=== PATIENT | female | born 1985 | race Caucasian/White ===

== ENCOUNTER 2016-04-03 21:55 | Emergency (ER) | payer OTHER ==
[2016-04-03 22:28] VITALS: BP 182/121; PULSE 114; RESP 16; TEMP 96.8
[2016-04-03] MEDS ORDERED: SODIUM CHLORIDE 0.9% 1,000 ML IV ONE (22:46)
[2016-04-03] MEDS ORDERED: cloNIDine HCL 0.2 MG TAB PO STA (22:47)
--- NOTE | 2016-04-04 03:50 | ED ---
General Adult HPI - General Chief complaint: Recheck/Abnormal Lab/Rx Stated complaint: Altered Mental State - LOC Time Seen by Provider: 04/03/16 22:11 Source: patient, EMS Mode of arrival: EMS Limitations: no limitations - History of Present Illness Initial comments: Patient is a 30-year-old female presenting to the EC via police escort with a chief complaint of altered mental status. They report that she was found at [employer] parking lot and was sleeping in her emergency medical technician/driver's seat. They state that they had to arouse her and banged on the window in order to wake her up. They state that initially when they found her she was incoherent and altered however as time progressed she started to become more coherent and was then brought to the EC. They report that she took one of her pain pills as well as a few Xanax for anxiety earlier today. She does have 2 pill bottle this with her about specific labeling on indicating that they are hers. Patient reports that she was in the parking lot because she was feeling slightly ill after dropping her daughter off at the movies. She reports that when she fell ill she pulled her car off into the parking lot and decided to rest. He states that she took her pain pills as well as a few Xanax and also took some for nerve pain pills including Neurontin. She denies any alcohol or other drug use. She states that she has a past medical history significant for kidney failure and has recently discontinued he doing dialysis. She reports she had kidney failure due to extreme blood loss during a consultation with . Patient reports that she feels fine at this time and wants to go home. Patient upon arrival to the EC does have an elevated blood pressure of 180/120. She reports that this is normal for her and she is due for her dose of labetalol. Patient denies any other specific symptoms including headache or chest pain. She denies any abdominal pain, nausea or vomiting. Severity scale (1-10): 0 - Related Data Home Medications Medication Instructions Recorded Confirmed No Known Home Medications [No 12/23/14 12/23/14 Known Home Medications] Allergies Allergy/AdvReac Type Severity Reaction Status Date / Time No Known Allergies Allergy Verified 12/23/14 06:52 Review of Systems ROS Statement: Those systems with pertinent positive or pertinent negative responses have been documented in the HPI. ROS Other: All systems not noted in ROS Statement are negative. Past Medical History Past Medical History: Hypertension, Renal Disease Additional Past Medical History / Comment(s): Patient reports one spontaneous vaginal delivery 7 years ago. History of Any Multi-Drug Resistant Organisms: None Reported Past Surgical History: No Surgical Hx Reported Additional Past Surgical History / Comment(s): Surgery of the eyebrow, dialysis Past Anesthesia/Blood Transfusion Reactions: No Reported Reaction Past Psychological History: No Psychological Hx Reported Smoking Status: Current every day smoker Past Alcohol Use History: None Reported Past Drug Use History: None Reported - Past Family History Mother Family Medical History: No Reported History General Exam - General Exam Comments Initial Comments: Patient is a well-appearing coherent 30-year-old female. She does not appear to be intoxicated or in any acute distress. Limitations: no limitations General appearance: alert, in no apparent distress Head exam: Present: atraumatic, normocephalic, normal inspection Eye exam: Present: normal appearance, PERRL, EOMI. Absent: scleral icterus, conjunctival injection, periorbital swelling ENT exam: Present: normal exam, normal oropharynx, mucous membranes moist, TM's normal bilaterally Neck exam: Present: normal inspection. Absent: tenderness, meningismus, lymphadenopathy Respiratory exam: Present: normal lung sounds bilaterally. Absent: respiratory distress, wheezes, rales, rhonchi, stridor Cardiovascular Exam: Present: regular rate, normal rhythm, normal heart sounds. Absent: systolic murmur, diastolic murmur, rubs, gallop, clicks GI/Abdominal exam: Present: soft, normal bowel sounds. Absent: distended, tenderness, guarding, rebound, rigid Extremities exam: Present: normal inspection, full ROM, normal capillary refill. Absent: tenderness, pedal edema, joint swelling, calf tenderness Back exam: Present: normal inspection Neurological exam: Present: alert, oriented X3, CN II-XII intact Expanded Patient oriented to: Present: person, place, time Speech: Present: fluid speech Cranial nerves: EOM's Intact: Normal Cerebellar function: Finger to Nose: Normal Upper motor neuron: Terry Neglect: Normal Sensory exam: Upper Extremity Light Touch: Normal, Lower Extremity Light Touch: Normal Motor strength exam: RUE: 5, LUE: 5, RLE: 5, LLE: 5 Eye Response: (4) open spontaneously Motor Response: (6) obeys commands Verbal Response: (5) oriented [place] Total: 15 Psychiatric exam: Present: normal affect, normal mood Skin exam: Present: warm, dry, intact, normal color. Absent: rash Course Vital Signs 04/03/16 22:11 Temperature 96.8 F L Pulse Rate 114 H Respiratory 16 Rate Blood Pressure 182/121 O2 Sat by Pulse 98 Oximetry Medical Decision Making - Medical Decision Making Patient is a well-appearing 30-year-old female. She does not appear to be in any acute distress. Given patient's elevated blood pressure would like to do further testing including lab work as well as chest x-ray and other studies. Patient is coherent and has no signs of head trauma or any other obvious organic causes for her loss consciousness earlier this evening. Patient now report was ran and she has not received a prescription for pain pill or Xanax within the past few years. Maps report was positive for pain pills ran in 2014. One wanting to start the IV and lab work patient became anxious. She states that she does not want to have any further treatment done and will wants to go home. Patient will sign out AMA regards to her blood pressure and diagnosis of altered mental status. Patient is coherent and understands the risks of leaving. Patient was given 1 mg of Catapres due to her high blood pressure before leaving. I advised patient that she needs to follow-up with her primary care or return to the if any alarming signs or symptoms occur. Patient understands treatment plan is that she will comply. Patient is likely the patient became intoxicated after taking her medications and was the reason why she was found in the [employer] parking lot sleeping. Again patient is coherent and no obvious signs of altered mental status at this time Disposition Clinical Impression: Hypertension, Altered awareness, transient Disposition: Left Against Medical Advice Condition: Serious Additional Instructions: Patient instructed to follow-up with primary care provider regards to hypertension. Referrals: Patti Murrell MD [Primary Care Provider] - 1-2 days Time of Disposition: 22:45
== END 2016-04-03 23:10 | disposition left against medical advice (07) ==
LOC: EC 21:55
DX: R40.4 Transient alteration of awareness (principal); I10 Essential (primary) hypertension; F17.200 Nicotine dependence, unspecified, uncomplicated; Z91.19 Patient's noncompliance with other medical treatment and regimen
CPT/HCPCS: 93005; 99285

== ENCOUNTER 2017-04-20 17:04 | Emergency (ER) | payer OTHER ==
[2017-04-20] MEDS ORDERED: SODIUM CHLORIDE 0.9% 1,000 ML IV ONE (17:17)
--- NOTE | 2017-04-20 17:30 | ED ---
Overdose HPI - General Stated Complaint: Overdose Time Seen by Provider: 04/20/17 17:07 Source: patient, EMS, RN notes reviewed, old records reviewed Mode of arrival: EMS Limitations: altered mental status - History of Present Illness Initial Comments: This patient is a 31-year-old female presents emergency Department with chief complaint of overdose. Patient reports that she took 800 mg of Phenergan. Patient reports that she was given this medication from a friend. Patient states that she was at home and her mother called the EMS. Patient reports that she feels very tired and fatigued. She denies any episodes of falling or her head. She is a poor historian however, she states that everything is 800 mg. Patient does not relate how she got this medication besides her friend giving it to her. Patient states that she is not suicidal. - Related Data Previous Rx's Medication Instructions Recorded amLODIPine [Norvasc] 5 mg PO DAILY #15 tab 04/21/17 Allergies Allergy/AdvReac Type Severity Reaction Status Date / Time No Known Allergies Allergy Verified 04/20/17 17:21 Review of Systems ROS Statement: Those systems with pertinent positive or pertinent negative responses have been documented in the HPI. ROS Other: All systems not noted in ROS Statement are negative. Past Medical History Past Medical History: Hypertension, Renal Disease Additional Past Medical History / Comment(s): Patient reports one spontaneous vaginal delivery 7 years ago. History of Any Multi-Drug Resistant Organisms: None Reported Past Surgical History: No Surgical Hx Reported Additional Past Surgical History / Comment(s): Surgery of the eyebrow, dialysis Past Anesthesia/Blood Transfusion Reactions: No Reported Reaction Past Psychological History: No Psychological Hx Reported Smoking Status: Current every day smoker Past Alcohol Use History: None Reported Past Drug Use History: None Reported - Past Family History Mother Family Medical History: No Reported History General Exam - General Exam Comments Initial Comments: This is a 31-year-old female. Patient is alert and oriented 2. Limitations: altered mental status General appearance: alert, in no apparent distress Head exam: Present: atraumatic, normocephalic, normal inspection Eye exam: Present: PERRL, EOMI, other (Patient has dilated pupils.). Absent: normal appearance, scleral icterus, conjunctival injection, periorbital swelling ENT exam: Present: normal exam, mucous membranes moist Neck exam: Present: normal inspection. Absent: tenderness, meningismus, lymphadenopathy Respiratory exam: Present: normal lung sounds bilaterally. Absent: respiratory distress, wheezes, rales, rhonchi, stridor Cardiovascular Exam: Present: regular rate, normal rhythm, normal heart sounds. Absent: systolic murmur, diastolic murmur, rubs, gallop, clicks GI/Abdominal exam: Present: soft, normal bowel sounds, other (Scars noted from previous surgeries.). Absent: distended, tenderness, guarding, rebound, rigid Extremities exam: Present: normal inspection, full ROM, normal capillary refill. Absent: tenderness, pedal edema, joint swelling, calf tenderness Back exam: Present: normal inspection Neurological exam: Present: abnormal gait. Absent: alert (Patient is somnolent. ) Expanded Patient oriented to: Present: person, place Speech: Present: expressive aphasia (When asked where patient family is, she continues to state 800 mg.) Cranial nerves: EOM's Intact: Normal (Patient does have a extraocular ocular eye movements, she does have delayed eye movements.) Cerebellar function: Finger to Nose: Abnormal Left (Patient unable to perform finger to nose testing.) Sensory exam: Upper Extremity Light Touch: Normal, Lower Extremity Pin Prick: Normal Motor strength exam: RUE: 5, LUE: 5, RLE: 5, LLE: 5 Eye Response: (4) open spontaneously Motor Response: (6) obeys commands Verbal Response: (4) confused conversation [place] Total: 14 Psychiatric exam: Present: normal affect, normal mood Skin exam: Present: warm, dry, intact, normal color. Absent: rash Course Vital Signs 04/20/17 04/20/17 04/20/17 17:17 18:40 19:00 Temperature 98.3 F Pulse Rate 82 98 99 Respiratory 18 16 18 Rate Blood Pressure 171/101 178/81 153/88 O2 Sat by Pulse 99 99 99 Oximetry 04/20/17 04/20/17 04/20/17 20:00 21:00 21:30 Temperature Pulse Rate 102 H 85 88 Respiratory 18 20 16 Rate Blood Pressure 165/88 203/112 162/102 O2 Sat by Pulse 99 100 99 Oximetry 04/20/17 04/20/17 04/20/17 22:00 22:30 22:56 Temperature Pulse Rate 84 81 94 Respiratory 20 18 20 Rate Blood Pressure 130/88 123/78 111/56 O2 Sat by Pulse 100 100 99 Oximetry 04/21/17 04/21/17 00:45 01:18 Temperature 79.8 F L Pulse Rate 94 92 Respiratory 18 16 Rate Blood Pressure 200/123 158/79 O2 Sat by Pulse 97 100 Oximetry - Reevaluation(s) Reevaluation #1: 04/20/17 18:49 Patient was repacked this time. She is alert and oriented. She is responsive to questions. She still does appear to be somewhat somnolent and drifting off to sleep when not talk to. Reevaluation #2: 04/20/17 20:19 Patient is alert and oriented. She is becoming increasingly anxious and states that she wants to leave at this time. Discussed waiting for further blood work. Medical Decision Making - Medical Decision Making This patient is a 31-year-old female presents emergency Department with chief complaint of overdose. Patient reports that she took 800 mg of Phenergan. Patient reports that she was given this medication from a friend. Patient states that she was at home and her mother called the EMS. Patient reports that she feels very tired and fatigued. She denies any episodes of falling or her head. She is a poor historian however, she states that everything is 800 mg. Patient does not relate how she got this medication besides her friend giving it to her. Patient states that she is not suicidal. Patient arrived with a bag of "Phenibut" brought with from patient's house by EMS. Time patient reports she took he 800 mg of the substance. The substance is similar to gabapentin. Internet search was completed and is a medication bottle online from [employer]. This is a [employer] AGon[employer]. When patient intially arrived stated that she was here on the of this month. I discussed with the patient that today is actually the . Patient became somnolent and was snoring throughout initial ER stay. Patient was arousable the entire time to sternal rub and wouldn't answer any questions more appropriately as time continued on. Patient did start to become more arousable, and anxious and stating that she wanted to leave. She did remain calm afterwards after discussion we needed more blood work. Patient labwork was reviewed with a normal. She continued to have elevated blood pressure. Patient's stay He is given IV labetalol and blood pressure came down appropriately. Patient reports that she does have history of poor kidney function and high blood pressure. She has not been to see her primary care doctor regularly. 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 Patient is alert and oriented. She is able to ambulate without difficulty. Patient will take a taxi ride home. I'll start the patient on Norvasc 5 blood pressure. Discussion is to stop taking the Phenibut medication. UDS is negative for other controlled or illegal substances. Patient understands treatment plan will comply. Return parameters were discussed. - Lab Data Result diagrams: 04/20/17 19:31 04/20/17 18:00 Lab Results 04/20/17 04/20/17 04/20/17 Range/Units 18:00 19:31 19:31 WBC 11.6 H (3.8-10.6) k/uL RBC 4.51 (3.80-5.40) m/uL Hgb 13.9 (11.4-16.0) gm/dL Hct 42.7 (34.0-46.0) % MCV 94.7 (80.0-100.0) fL MCH 30.8 (25.0-35.0) pg MCHC 32.5 (31.0-37.0) g/dL RDW 16.7 H (11.5-15.5) % Plt Count 305 (150-450) k/uL Neutrophils % 79 % Lymphocytes % 15 % Monocytes % 3 % Eosinophils % 1 % Basophils % 1 % Neutrophils # 9.2 H (1.3-7.7) k/uL Lymphocytes # 1.8 (1.0-4.8) k/uL Monocytes # 0.4 (0-1.0) k/uL Eosinophils # 0.1 (0-0.7) k/uL Basophils # 0.1 (0-0.2) k/uL Anisocytosis Slight PT 9.6 (9.0-12.0) sec INR 1.0 (<1.2) APTT 22.4 (22.0-30.0) sec Sodium 144 (137-145) mmol/L Potassium 4.1 (3.5-5.1) mmol/L Chloride 110 H (98-107) mmol/L Carbon Dioxide 21 L (22-30) mmol/L Anion Gap 13 mmol/L BUN 22 H (7-17) mg/dL Creatinine 1.45 H (0.52-1.04) mg/dL Est GFR (MDRD) Af Amer 51 (>60 ml/min/1.73 sqM) Est GFR (MDRD) Non-Af 42 (>60 ml/min/1.73 sqM) Glucose 95 (74-99) mg/dL Calcium 10.3 H (8.4-10.2) mg/dL Total Bilirubin 0.5 (0.2-1.3) mg/dL AST 23 (14-36) U/L ALT 26 (9-52) U/L Alkaline Phosphatase 122 (38-126) U/L Total Creatine Kinase (30-135) U/L CK-MB (CK-2) (0.0-2.4) ng/mL CK-MB (CK-2) Rel Index Troponin I (0.000-0.034) ng/mL Total Protein 7.8 (6.3-8.2) g/dL Albumin 4.6 (3.5-5.0) g/dL Urine Color Urine Appearance (Clear) Urine pH (5.0-8.0) Ur Specific [place] (1.001-1.035) Urine Protein (Negative) Urine Glucose (UA) (Negative) Urine Ketones (Negative) Urine Blood (Negative) Urine Nitrite (Negative) Urine Bilirubin (Negative) Urine Urobilinogen (<2.0) mg/dL Ur Leukocyte Esterase (Negative) Urine RBC (0-5) /hpf Urine WBC (0-5) /hpf Urine Bacteria (None) /hpf Hyaline Casts (0-2) /lpf Urine Mucus (None) /hpf Urine Opiates Screen (NotDetected) Ur Oxycodone Screen (NotDetected) Urine Methadone Screen (NotDetected) Ur Propoxyphene Screen (NotDetected) Acetaminophen <10.0 ug/mL Ur Barbiturates Screen (NotDetected) U Tricyclic Antidepress (NotDetected) Ur Phencyclidine Scrn (NotDetected) Ur Amphetamines Screen (NotDetected) U Methamphetamines Scrn (NotDetected) U Benzodiazepines Scrn (NotDetected) Urine Cocaine Screen (NotDetected) U Marijuana (THC) Screen (NotDetected) 04/20/17 04/20/17 Range/Units 19:31 19:53 WBC (3.8-10.6) k/uL RBC (3.80-5.40) m/uL Hgb (11.4-16.0) gm/dL Hct (34.0-46.0) % MCV (80.0-100.0) fL MCH (25.0-35.0) pg MCHC (31.0-37.0) g/dL RDW (11.5-15.5) % Plt Count (150-450) k/uL Neutrophils % % Lymphocytes % % Monocytes % % Eosinophils % % Basophils % % Neutrophils # (1.3-7.7) k/uL Lymphocytes # (1.0-4.8) k/uL Monocytes # (0-1.0) k/uL Eosinophils # (0-0.7) k/uL Basophils # (0-0.2) k/uL Anisocytosis PT (9.0-12.0) sec INR (<1.2) APTT (22.0-30.0) sec Sodium (137-145) mmol/L Potassium (3.5-5.1) mmol/L Chloride (98-107) mmol/L Carbon Dioxide (22-30) mmol/L Anion Gap mmol/L BUN (7-17) mg/dL Creatinine (0.52-1.04) mg/dL Est GFR (MDRD) Af Amer (>60 ml/min/1.73 sqM) Est GFR (MDRD) Non-Af (>60 ml/min/1.73 sqM) Glucose (74-99) mg/dL Calcium (8.4-10.2) mg/dL Total Bilirubin (0.2-1.3) mg/dL AST (14-36) U/L ALT (9-52) U/L Alkaline Phosphatase (38-126) U/L Total Creatine Kinase 279 H (30-135) U/L CK-MB (CK-2) 6.3 H* (0.0-2.4) ng/mL CK-MB (CK-2) Rel Index 2.3 Troponin I 0.015 (0.000-0.034) ng/mL Total Protein (6.3-8.2) g/dL Albumin (3.5-5.0) g/dL Urine Color Light Yellow Urine Appearance Clear (Clear) Urine pH 5.5 (5.0-8.0) Ur Specific [place] 1.006 (1.001-1.035) Urine Protein 1+ H (Negative) Urine Glucose (UA) Negative (Negative) Urine Ketones Negative (Negative) Urine Blood Small H (Negative) Urine Nitrite Negative (Negative) Urine Bilirubin Negative (Negative) Urine Urobilinogen <2.0 (<2.0) mg/dL Ur Leukocyte Esterase Negative (Negative) Urine RBC 1 (0-5) /hpf Urine WBC 1 (0-5) /hpf Urine Bacteria Rare H (None) /hpf Hyaline Casts 1 (0-2) /lpf Urine Mucus Rare H (None) /hpf Urine Opiates Screen Not Detected (NotDetected) Ur Oxycodone Screen Not Detected (NotDetected) Urine Methadone Screen Not Detected (NotDetected) Ur Propoxyphene Screen Not Detected (NotDetected) Acetaminophen ug/mL Ur Barbiturates Screen Not Detected (NotDetected) U Tricyclic Antidepress Not Detected (NotDetected) Ur Phencyclidine Scrn Not Detected (NotDetected) Ur Amphetamines Screen Not Detected (NotDetected) U Methamphetamines Scrn Not Detected (NotDetected) U Benzodiazepines Scrn Not Detected (NotDetected) Urine Cocaine Screen Not Detected (NotDetected) U Marijuana (THC) Screen Not Detected (NotDetected) 04/20/17 17:32 EKG shows normal sinus rhythm. Ventricular rate of 86 bpm. FL interval 134 ms. QRS duration 78 ms. QT QTC 05/28/1981/457 ms. No evidence of ST elevation or T-wave inversions. No with atrial or ventricular arrhythmias. - Radiology Data Radiology results: report reviewed Chest x-ray was reviewed and negative for any acute process. Disposition Clinical Impression: Overdose, Hypertension Disposition: HOME SELF-CARE Condition: Good Instructions: Adult Overdose (ED) Additional Instructions: Follow-up with PCP. Avoid using drugs and other substances. Return to the emergency department if any alarming signs or symptoms occur. Prescriptions: amLODIPine [Norvasc] 5 mg PO DAILY #15 tab Referrals: Patti Murrell MD [Primary Care Provider] - 1-2 days Time of Disposition: 23:42
[2017-04-20 19:18] LABS: ALT 26 U/L (9-52); AST 23 U/L (14-36); Acetaminophen <10.0 ug/mL; Albumin 4.6 g/dL (3.5-5.0); Alkaline Phosphatase 122 U/L (38-126); Anion Gap 13 mmol/L; Blood Urea Nitrogen 22 mg/dL (7-17); Calcium 10.3 mg/dL (8.4-10.2); Carbon Dioxide 21 mmol/L (22-30); Chloride 110 mmol/L (98-107); Glucose 95 mg/dL (74-99); Potassium 4.1 mmol/L (3.5-5.1); Sodium 144 mmol/L (137-145); Total Bilirubin 0.5 mg/dL (0.2-1.3); Total Protein 7.8 g/dL (6.3-8.2)
[2017-04-20 19:48] LABS: Anisocytosis Slight; Basophils # (A) 0.1 k/uL (0-0.2); Basophils % (A) 1 %; Eosinophils # (A) 0.1 k/uL (0-0.7); Eosinophils % (A) 1 %; HCT 42.7 % (34.0-46.0); HGB 13.9 gm/dL (11.4-16.0); Lymphocytes # (A) 1.8 k/uL (1.0-4.8); Lymphocytes % (A) 15 %; MCH 30.8 pg (25.0-35.0); MCHC 32.5 g/dL (31.0-37.0); MCV 94.7 fL (80.0-100.0); Mean Platelet Volume 7.8; Monocytes # (A) 0.4 k/uL (0-1.0); Monocytes % (A) 3 %; Neutrophils # (A) 9.2 k/uL (1.3-7.7); Neutrophils % (A) 79 %; Platelet Count 305 k/uL (150-450); RBC 4.51 m/uL (3.80-5.40); RDW 16.7 % (11.5-15.5); WBC 11.6 k/uL (3.8-10.6)
[2017-04-20 19:57] LABS: Partial Thromboplastin Time 22.4 sec (22.0-30.0); Prothrombin Time 9.6 sec (9.0-12.0)
[2017-04-20 20:18] LABS: Appearance,Urine Clear (Clear); Bacteria,Urine Rare /hpf; Bilirubin,Urine Negative (Negative); Blood,Urine Small (Negative); Color,Urine Light Yellow; Glucose,Urine (UA) Negative (Negative); Hyaline Casts,Urine 1 /lpf (0-2); Ketones,Urine Negative (Negative); Leukocyte Esterase,Urine Negative (Negative); Mucus,Urine Rare /hpf; Nitrite,Urine Negative (Negative); PH, Urine 5.5 (5.0-8.0); Protein,Urine 1+ (Negative); RBC,Urine 1 /hpf (0-5); Specific Gravity,Urine 1.006 (1.001-1.035); Urobilinogen,Urine <2.0 mg/dL (<2.0); WBC,Urine 1 /hpf (0-5)
[2017-04-20 20:32] LABS: Amphetamine Screen,Urine Not Detected (NotDetected); Barbiturate Screen,Urine Not Detected (NotDetected); Benzodiazepines Screen,Urine Not Detected (NotDetected); Cocaine Screen,Urine Not Detected (NotDetected); Methadone Screen, Urine Not Detected (NotDetected); Opiate Screen,Urine Not Detected (NotDetected); Oxycodone Screen, Urine Not Detected (NotDetected); Phencyclidine Screen,Urine Not Detected (NotDetected); Tricyclic Antidepressant,Urine Not Detected (NotDetected); Urn Cannabinoid Scrn Not Detected (NotDetected)
[2017-04-20 20:34] LABS: Troponin I 0.015 ng/mL (0.000-0.034)
[2017-04-20 20:44] LABS: Creatine Kinase MB 6.3 ng/mL (0.0-2.4)
[2017-04-20] MEDS: LABETALOL 5 MG/ML VIAL MDV IVP STA (21:00)
--- NOTE | 2017-04-20 21:03 | XR ---
EXAMINATION: XR chest 3V DATE AND TIME: 04/20/2017 8:29 PM ORDERING PROVIDER: Louisa Hardy CLINICAL INDICATION: altered mental status TECHNIQUE: 2 PA and 1 lateral COMPARISON: 12/24/2014 DESCRIPTION: The lungs are clear. The pleural spaces are negative. The cardiac silhouette is not enlarged. The mediastinal and pleural silhouettes are unremarkable. The skeletal structures are intact without focal findings. The soft tissues are unremarkable. IMPRESSION: NO ACUTE PROCESS.
[2017-04-21] MEDS ORDERED: LABETALOL 5 MG/ML VIAL MDV IVP STA (00:38)
[2017-04-21] MEDS: LABETALOL 5 MG/ML VIAL MDV IVP STA (00:47)
[2017-04-21 01:21] VITALS: BP 158/79; PULSE 92; RESP 16; TEMP 79.8
== END 2017-04-21 01:30 | disposition home or self-care (01) ==
LOC: EC 17:04
DX: T42.6X1A Poisoning by other antiepileptic and sedative-hypnotic drugs, accidental (unintentional), initial encounter (principal); I10 Essential (primary) hypertension; R41.82 Altered mental status, unspecified; F17.200 Nicotine dependence, unspecified, uncomplicated
CPT/HCPCS: 36415; 71046; 80053; 80299; 80306; 81001; 82550; 82553; 83520; 84484; 85025; 85610; 85730; 93005; 96361; 96374; 96376; 99285

== ENCOUNTER 2017-04-25 11:32 | Emergency (ER) | payer OTHER ==
[2017-04-25] MEDS ORDERED: SODIUM CHLORIDE 0.9% 1,000 ML IV ONE (12:43)
--- NOTE | 2017-04-25 12:46 | ED ---
General Adult HPI - General Chief complaint: Neuro Symptoms/Deficit Stated complaint: VISION ISSUES Time Seen by Provider: 04/25/17 12:00 Source: patient, RN notes reviewed Mode of arrival: wheelchair Limitations: no limitations - History of Present Illness Initial comments: This is a 31-year-old female who presents emergency Department with the complaint that since she took some medications that she bought off-line last week she has been feeling different. Patient states she came to the emergency department last week and eventually discharged her home. Patient states since then she's only slept 2 hours and she has noticed that colors seem to be brighter and that sounds seemed echo in her head. Patient denies headache patient denies numbness weakness. Patient states she does have a cough but there is no sputum production. Patient denies any shortness of breath or difficulty breathing. Patient denies any chest pain or palpitations. Patient denies any other drug use. Patient denies alcohol use. Patient denies abdominal pain patient denies nausea vomiting diarrhea. Patient denies any difficulty standing. Patient denies any syncopal episode. - Related Data Home Medications Medication Instructions Recorded Confirmed Phenibut Oral Powder 1 dose PO ONCE 04/25/17 04/25/17 Previous Rx's Medication Instructions Recorded amLODIPine [Norvasc] 5 mg PO DAILY #15 tab 04/21/17 amLODIPine [Norvasc] 5 mg PO DAILY #15 tab 04/25/17 Allergies Allergy/AdvReac Type Severity Reaction Status Date / Time No Known Allergies Allergy Verified 04/25/17 12:47 Review of Systems ROS Statement: Those systems with pertinent positive or pertinent negative responses have been documented in the HPI. ROS Other: All systems not noted in ROS Statement are negative. Past Medical History Past Medical History: Hypertension, Renal Disease Additional Past Medical History / Comment(s): Patient reports one spontaneous vaginal delivery 7 years ago. History of Any Multi-Drug Resistant Organisms: None Reported Past Surgical History: No Surgical Hx Reported Additional Past Surgical History / Comment(s): Surgery of the eyebrow, dialysis Past Anesthesia/Blood Transfusion Reactions: No Reported Reaction Past Psychological History: No Psychological Hx Reported Smoking Status: Current every day smoker Past Alcohol Use History: Occasional Past Drug Use History: None Reported - Past Family History Mother Family Medical History: No Reported History General Exam - General Exam Comments Initial Comments: GENERAL: Patient is well-developed and well-nourished. Patient is nontoxic and well- hydrated and is in mild distress. ENT: Neck is soft and supple. No significant lymphadenopathy is noted. Oropharynx is clear. Moist mucous membranes. Neck has full range of motion without eliciting any pain. EYES: The sclera were anicteric and conjunctiva were pink and moist. Extraocular movements were intact and pupils were equal round and reactive to light. Eyelids were unremarkable. PULMONARY: Unlabored respirations. Good breath sounds bilaterally. No audible rales rhonchi or wheezing was noted. CARDIOVASCULAR: There is a regular rate and rhythm without any murmurs gallops or rubs. ABDOMEN: Soft and nontender with normal bowel sounds. No palpable organomegaly was noted. There is no palpable pulsatile mass. SKIN: Skin is clear with no lesions or rashes and otherwise unremarkable. NEUROLOGIC: Patient is alert and oriented x3. Cranial nerves II through XII are grossly intact. Motor and sensory are also intact. Normal speech, volume and content. Symmetrical smile. MUSCULOSKELETAL: Normal extremities with adequate strength and full range of motion. No lower extremity swelling or edema. No calf tenderness. LYMPHATICS: No significant lymphadenopathy is noted PSYCHIATRIC: Normal psychiatric evaluation. Normal interpersonal interactions appears functionally intact in deals appropriately with others. No signs of depression. No signs of anxiety. Limitations: no limitations Course Vital Signs 04/25/17 04/25/17 11:57 14:39 Temperature 97 F L Pulse Rate 107 H 93 Respiratory 18 20 Rate Blood Pressure 189/124 185/100 O2 Sat by Pulse 100 97 Oximetry Medical Decision Making - Medical Decision Making EKG shows sinus tachycardia at 102 bpm SD interval is 1:30 QRS is 86 QT interval 348 QTC is 453. Patient's EKG shows no ST segment elevation or depression or T wave abnormalities are noted I went back into reevaluate the patient she stated that this sounds that apparently she is only hearing are making her IV responded with occasional twitches. Patient will follow-up with [facility] and Dr. Veloz the neurologist. Patient states she will also establish herself with a primary medical care doctor secure for high blood pressure. - Lab Data Result diagrams: 04/25/17 13:26 04/25/17 13:26 Lab Results 04/25/17 04/25/17 04/25/17 Range/Units 13:12 13:26 13:26 WBC 13.0 H (3.8-10.6) k/uL RBC 4.56 (3.80-5.40) m/uL Hgb 14.2 (11.4-16.0) gm/dL Hct 42.4 (34.0-46.0) % MCV 93.0 (80.0-100.0) fL MCH 31.2 (25.0-35.0) pg MCHC 33.6 (31.0-37.0) g/dL RDW 14.7 (11.5-15.5) % Plt Count 435 (150-450) k/uL Neutrophils % 79 % Lymphocytes % 14 % Monocytes % 3 % Eosinophils % 1 % Basophils % 1 % Neutrophils # 10.3 H (1.3-7.7) k/uL Lymphocytes # 1.8 (1.0-4.8) k/uL Monocytes # 0.4 (0-1.0) k/uL Eosinophils # 0.2 (0-0.7) k/uL Basophils # 0.1 (0-0.2) k/uL PT (9.0-12.0) sec INR (<1.2) APTT (22.0-30.0) sec Sodium (137-145) mmol/L Potassium (3.5-5.1) mmol/L Chloride (98-107) mmol/L Carbon Dioxide (22-30) mmol/L Anion Gap mmol/L BUN (7-17) mg/dL Creatinine (0.52-1.04) mg/dL Est GFR (MDRD) Af Amer (>60 ml/min/1.73 sqM) Est GFR (MDRD) Non-Af (>60 ml/min/1.73 sqM) Glucose (74-99) mg/dL POC Glucose (mg/dL) 94 (75-99) mg/dL POC Glu Rehabilitation Counsellor ID Feng Valera Calcium (8.4-10.2) mg/dL Total Bilirubin (0.2-1.3) mg/dL AST (14-36) U/L ALT (9-52) U/L Alkaline Phosphatase (38-126) U/L Total Creatine Kinase 44 (30-135) U/L CK-MB (CK-2) 0.3 (0.0-2.4) ng/mL CK-MB (CK-2) Rel Index 0.7 Troponin I 0.017 (0.000-0.034) ng/mL Total Protein (6.3-8.2) g/dL Albumin (3.5-5.0) g/dL Urine Color Urine Appearance (Clear) Urine pH (5.0-8.0) Ur Specific [place] (1.001-1.035) Urine Protein (Negative) Urine Glucose (UA) (Negative) Urine Ketones (Negative) Urine Blood (Negative) Urine Nitrite (Negative) Urine Bilirubin (Negative) Urine Urobilinogen (<2.0) mg/dL Ur Leukocyte Esterase (Negative) Urine RBC (0-5) /hpf Urine WBC (0-5) /hpf Ur Squamous Epith Cells (0-4) /hpf Urine Bacteria (None) /hpf Urine Mucus (None) /hpf Urine Opiates Screen (NotDetected) Ur Oxycodone Screen (NotDetected) Urine Methadone Screen (NotDetected) Ur Propoxyphene Screen (NotDetected) Ur Barbiturates Screen (NotDetected) U Tricyclic Antidepress (NotDetected) Ur Phencyclidine Scrn (NotDetected) Ur Amphetamines Screen (NotDetected) U Methamphetamines Scrn (NotDetected) U Benzodiazepines Scrn (NotDetected) Urine Cocaine Screen (NotDetected) U Marijuana (THC) Screen (NotDetected) Serum Alcohol mg/dL 04/25/17 04/25/17 04/25/17 Range/Units 13:26 13:26 13:30 WBC (3.8-10.6) k/uL RBC (3.80-5.40) m/uL Hgb (11.4-16.0) gm/dL Hct (34.0-46.0) % MCV (80.0-100.0) fL MCH (25.0-35.0) pg MCHC (31.0-37.0) g/dL RDW (11.5-15.5) % Plt Count (150-450) k/uL Neutrophils % % Lymphocytes % % Monocytes % % Eosinophils % % Basophils % % Neutrophils # (1.3-7.7) k/uL Lymphocytes # (1.0-4.8) k/uL Monocytes # (0-1.0) k/uL Eosinophils # (0-0.7) k/uL Basophils # (0-0.2) k/uL PT 9.5 (9.0-12.0) sec INR 1.0 (<1.2) APTT 24.0 (22.0-30.0) sec Sodium 144 (137-145) mmol/L Potassium 4.1 (3.5-5.1) mmol/L Chloride 109 H (98-107) mmol/L Carbon Dioxide 18 L (22-30) mmol/L Anion Gap 17 mmol/L BUN 30 H (7-17) mg/dL Creatinine 1.90 H (0.52-1.04) mg/dL Est GFR (MDRD) Af Amer 37 (>60 ml/min/1.73 sqM) Est GFR (MDRD) Non-Af 31 (>60 ml/min/1.73 sqM) Glucose 86 (74-99) mg/dL POC Glucose (mg/dL) (75-99) mg/dL POC Glu Rehabilitation Counsellor ID Calcium 10.5 H (8.4-10.2) mg/dL Total Bilirubin 0.4 (0.2-1.3) mg/dL AST 17 (14-36) U/L ALT 19 (9-52) U/L Alkaline Phosphatase 126 (38-126) U/L Total Creatine Kinase (30-135) U/L CK-MB (CK-2) (0.0-2.4) ng/mL CK-MB (CK-2) Rel Index Troponin I (0.000-0.034) ng/mL Total Protein 8.0 (6.3-8.2) g/dL Albumin 4.7 (3.5-5.0) g/dL Urine Color Yellow Urine Appearance Cloudy H (Clear) Urine pH 6.0 (5.0-8.0) Ur Specific [place] 1.016 (1.001-1.035) Urine Protein 2+ H (Negative) Urine Glucose (UA) Negative (Negative) Urine Ketones 2+ H (Negative) Urine Blood Moderate H (Negative) Urine Nitrite Negative (Negative) Urine Bilirubin Negative (Negative) Urine Urobilinogen <2.0 (<2.0) mg/dL Ur Leukocyte Esterase Negative (Negative) Urine RBC 2 (0-5) /hpf Urine WBC 5 (0-5) /hpf Ur Squamous Epith Cells 6 H (0-4) /hpf Urine Bacteria Rare H (None) /hpf Urine Mucus Rare H (None) /hpf Urine Opiates Screen Not Detected (NotDetected) Ur Oxycodone Screen Not Detected (NotDetected) Urine Methadone Screen Not Detected (NotDetected) Ur Propoxyphene Screen Not Detected (NotDetected) Ur Barbiturates Screen Not Detected (NotDetected) U Tricyclic Antidepress Not Detected (NotDetected) Ur Phencyclidine Scrn Not Detected (NotDetected) Ur Amphetamines Screen Not Detected (NotDetected) U Methamphetamines Scrn Not Detected (NotDetected) U Benzodiazepines Scrn Not Detected (NotDetected) Urine Cocaine Screen Not Detected (NotDetected) U Marijuana (THC) Screen Not Detected (NotDetected) Serum Alcohol <10 mg/dL Disposition Clinical Impression: Sensory disturbance, Renal insufficiency, Hypertension Disposition: HOME SELF-CARE Condition: Good Instructions: Hypertension (ED) Prescriptions: amLODIPine [Norvasc] 5 mg PO DAILY #15 tab Referrals: None,Stated [Primary Care Provider] - 1-2 days Time of Disposition: 16:53
[2017-04-25 13:13] LABS: Glucose,Whole Blood 94 mg/dL (75-99)
[2017-04-25 13:56] LABS: Basophils # (A) 0.1 k/uL (0-0.2); Basophils % (A) 1 %; Eosinophils # (A) 0.2 k/uL (0-0.7); Eosinophils % (A) 1 %; HCT 42.4 % (34.0-46.0); HGB 14.2 gm/dL (11.4-16.0); Lymphocytes # (A) 1.8 k/uL (1.0-4.8); Lymphocytes % (A) 14 %; MCH 31.2 pg (25.0-35.0); MCHC 33.6 g/dL (31.0-37.0); Mean Platelet Volume 7.4; Monocytes # (A) 0.4 k/uL (0-1.0); Monocytes % (A) 3 %; Neutrophils # (A) 10.3 k/uL (1.3-7.7); Neutrophils % (A) 79 %; Platelet Count 435 k/uL (150-450); RBC 4.56 m/uL (3.80-5.40); RDW 14.7 % (11.5-15.5)
[2017-04-25 14:06] LABS: Prothrombin Time 9.5 sec (9.0-12.0)
[2017-04-25 14:10] LABS: ALT 19 U/L (9-52); AST 17 U/L (14-36); Albumin 4.7 g/dL (3.5-5.0); Alcohol <10 mg/dL; Alkaline Phosphatase 126 U/L (38-126); Anion Gap 17 mmol/L; Blood Urea Nitrogen 30 mg/dL (7-17); Calcium 10.5 mg/dL (8.4-10.2); Carbon Dioxide 18 mmol/L (22-30); Chloride 109 mmol/L (98-107); Glucose 86 mg/dL (74-99); Potassium 4.1 mmol/L (3.5-5.1); Sodium 144 mmol/L (137-145); Total Bilirubin 0.4 mg/dL (0.2-1.3)
--- NOTE | 2017-04-25 14:22 | CT ---
EXAMINATION TYPE: CT brain wo con DATE OF EXAM: 04/25/2017 COMPARISON: NONE HISTORY: Visual disturbances and altered mental status. CT DLP: 978.20 mGycm. Automated Exposure Control for Dose Reduction was Utilized. TECHNIQUE: CT scan of the head is performed without contrast. FINDINGS: There is no acute intracranial hemorrhage, mass effect, or midline shift identified. The ventricles and sulci are within normal limits in size. Sage-white matter differentiation is maintain ed. The globes are intact and the visualized sinuses are clear. IMPRESSION: No acute intracranial hemorrhage or midline shift is seen. Unremarkable study.
--- NOTE | 2017-04-25 14:23 | XR ---
EXAMINATION TYPE: XR chest 2V DATE OF EXAM: 04/25/2017 COMPARISON: Chest x-ray April 20, 2017. HISTORY: Altered mental status and weakness. TECHNIQUE: Frontal and lateral views of the chest are obtained. FINDINGS: There is no focal air space opacity, pleural effusion, or pneumothorax seen. The cardiac silhouette size is within normal limits. The osseous structures are intact. IMPRESSION: No acute cardiopulmonary process. No significant change from prior study.
[2017-04-25 14:28] LABS: Appearance,Urine Cloudy (Clear); Bacteria,Urine Rare /hpf; Bilirubin,Urine Negative (Negative); Blood,Urine Moderate (Negative); Color,Urine Yellow; Glucose,Urine (UA) Negative (Negative); Ketones,Urine 2+ (Negative); Leukocyte Esterase,Urine Negative (Negative); Mucus,Urine Rare /hpf; Nitrite,Urine Negative (Negative); Protein,Urine 2+ (Negative); RBC,Urine 2 /hpf (0-5); Specific Gravity,Urine 1.016 (1.001-1.035); Squamous Epithelial Cell,Urine 6 /hpf (0-4); Urobilinogen,Urine <2.0 mg/dL (<2.0); WBC,Urine 5 /hpf (0-5)
[2017-04-25 14:34] LABS: Amphetamine Screen,Urine Not Detected (NotDetected); Barbiturate Screen,Urine Not Detected (NotDetected); Benzodiazepines Screen,Urine Not Detected (NotDetected); Cocaine Screen,Urine Not Detected (NotDetected); Methadone Screen, Urine Not Detected (NotDetected); Opiate Screen,Urine Not Detected (NotDetected); Oxycodone Screen, Urine Not Detected (NotDetected); Phencyclidine Screen,Urine Not Detected (NotDetected); Tricyclic Antidepressant,Urine Not Detected (NotDetected); Urn Cannabinoid Scrn Not Detected (NotDetected)
[2017-04-25 14:41] VITALS: RESP 20
[2017-04-25 14:51] LABS: Creatine Kinase MB 0.3 ng/mL (0.0-2.4); Troponin I 0.017 ng/mL (0.000-0.034)
[2017-04-25] MEDS ORDERED: hydrALAZINE HCL 20 MG/ML 1 ML VIAL IVP STA ×2 (16:25→17:11)
[2017-04-25 17:29] VITALS: BP 170/90; PULSE 87; TEMP 98
== END 2017-04-25 17:27 | disposition home or self-care (01) ==
LOC: EC 11:32
DX: N28.9 Disorder of kidney and ureter, unspecified (principal); I10 Essential (primary) hypertension; R20.9 Unspecified disturbances of skin sensation; R05 Cough; F17.200 Nicotine dependence, unspecified, uncomplicated; Z79.899 Other long term (current) drug therapy
CPT/HCPCS: 82075; 36415; 93005; 80053; 82550; 82553; 84484; 85025; 85610; 85730; 81001; 80306; 80320; 71046; 70450; 99285; 96374; 96376; 96361; J0360

== ENCOUNTER 2022-04-24 11:46 | Emergency (ER) | payer OTHER ==
[2022-04-24] MEDS ORDERED: KETOROLAC 15 MG/ML 1 ML VIAL IM STA (11:59)
[2022-04-24] MEDS ORDERED: LIDOCAINE 1% INJ 10MG/ML (30 ML VIAL-PF) SQ ONE (12:00)
[2022-04-24] MEDS ORDERED: amLODIPine 10 MG TAB PO STA (12:17)
[2022-04-24] MEDS ORDERED: DIPH,PERTUS(ACELL)TETVAC-LF 0.5 ML VIAL IM ONE (12:17)
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
[2022-04-24] MEDS ORDERED: cloNIDine HCL 0.1 MG TAB PO STA (13:01)
[2022-04-24 14:56] VITALS: BP 161/114; PULSE 86; RESP 16; TEMP 97.9
== END 2022-04-24 14:56 | disposition home or self-care (01) ==
LOC: EC 11:46
DX: S61.511A Laceration without foreign body of right wrist, initial encounter (principal); I10 Essential (primary) hypertension; F17.200 Nicotine dependence, unspecified, uncomplicated; F12.90 Cannabis use, unspecified, uncomplicated; X99.1XXA Assault by knife, initial encounter
CPT/HCPCS: 99283; 96372; 12001; J2001; J1885

== ENCOUNTER 2023-07-01 02:41 | Inpatient (IN) | payer MEDICAID, OTHER ==
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
[2023-07-01 06:09] LABS: Basophils # (A) 0.1 k/uL (0-0.2); Basophils % (A) 1 %; Eosinophils # (A) 0.3 k/uL (0-0.7); Eosinophils % (A) 3 %; HCT 35.6 % (34.0-46.0); HGB 11.6 gm/dL (11.4-16.0); Lymphocytes # (A) 1.8 k/uL (1.0-4.8); Lymphocytes % (A) 18 %; MCHC 32.6 g/dL (31.0-37.0); MCV 88.9 fL (80.0-100.0); Mean Platelet Volume 7.9; Monocytes # (A) 0.6 k/uL (0-1.0); Monocytes % (A) 5 %; Neutrophils # (A) 7.3 k/uL (1.3-7.7); Neutrophils % (A) 72 %; Platelet Count 321 k/uL (150-450); RBC 4.01 m/uL (3.80-5.40); RDW 14.3 % (11.5-15.5); WBC 10.1 k/uL (3.8-10.6)
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
[2023-07-01 06:33] LABS: ALT 25 U/L (4-34); AST 31 U/L (14-36); Acetaminophen <10.0 ug/mL; African American GFR (CKD) 32 (>60 ml/min/1.73 sqM); Albumin 4.6 g/dL (3.5-5.0); Alcohol <10 mg/dL; Alkaline Phosphatase 90 U/L (38-126); Anion Gap 12 mmol/L; Blood Urea Nitrogen 37 mg/dL (7-17); Calcium 9.3 mg/dL (8.4-10.2); Carbon Dioxide 23 mmol/L (22-30); Chloride 103 mmol/L (98-107); Glucose 102 mg/dL (74-99); Non-African American GFR(CKD) 28 (>60 ml/min/1.73 sqM); Potassium 3.3 mmol/L (3.5-5.1); Salicylate <1.0 mg/dL; Sodium 138 mmol/L (137-145); Total Bilirubin 0.5 mg/dL (0.2-1.3); Total Protein 7.7 g/dL (6.3-8.2)
[2023-07-01 06:34] LABS: Appearance,Urine Clear (Clear); Bilirubin,Urine Negative (Negative); Blood,Urine Trace (Negative); Color,Urine Colorless; Glucose,Urine (UA) Negative (Negative); Hyaline Casts,Urine 1 /lpf (0-2); Ketones,Urine Negative (Negative); Leukocyte Esterase,Urine Negative (Negative); Nitrite,Urine Negative (Negative); Protein,Urine 1+ (Negative); RBC,Urine <1 /hpf (0-5); Specific Gravity,Urine 1.007 (1.001-1.035); Squamous Epithelial Cell,Urine <1 /hpf (0-4); Urobilinogen,Urine <2.0 mg/dL (<2.0); WBC,Urine <1 /hpf (0-5)
[2023-07-01 06:55] LABS: Amphetamine Screen,Urine Detected (NotDetected); Barbiturate Screen,Urine Not Detected (NotDetected); Benzodiazepines Screen,Urine Not Detected (NotDetected); Cocaine Screen,Urine Not Detected (NotDetected); Methadone Screen, Urine Not Detected (NotDetected); Opiate Screen,Urine Not Detected (NotDetected); Oxycodone Screen, Urine Not Detected (NotDetected); Phencyclidine Screen,Urine Not Detected (NotDetected); Tricyclic Antidepressant,Urine Not Detected (NotDetected); Urn Cannabinoid Scrn Not Detected (NotDetected)
[2023-07-01] MEDS: NICOTINE 21MG/24HR PATCH TRANSDERM STA (14:57)
[2023-07-01] MEDS: LORazepam 2 MG/ML INJ IV STA (14:58)
[2023-07-01] MEDS ORDERED: HALOPERIDOL LACTATE 5 MG/ML 1 ML VIAL IM PRN (15:29)
[2023-07-01] MEDS ORDERED: IBUPROFEN 600 MG TAB PO PRN (15:29)
[2023-07-01] MEDS ORDERED: haloperidoL 5 MG TAB PO PRN (15:29)
[2023-07-01] MEDS ORDERED: LORazepam 2 MG/ML INJ IM PRN (15:29)
[2023-07-01] MEDS ORDERED: MAG HYDROX/AL HYDROX/SIMETH 355 ML BOTTLE PO PRN (15:29)
[2023-07-01] MEDS ORDERED: MAGNESIUM HYDROXIDE 2,400 MG/30 ML CUP PO PRN (15:29)
[2023-07-01] MEDS: NICOTINE 14MG/24HR PATCH TRANSDERM SCH (16:49)
[2023-07-01] MEDS: LABETALOL 100 MG TAB PO SCH (21:14)
[2023-07-01] MEDS: NIFEdipine XL 90 MG TAB.ER.24 PO SCH (22:40)
[2023-07-01] MEDS: NON FORMULARY DRUG (Buprenorphine/Naloxone 8mg/2mg 1 EACH Film) SUBLINGUAL ONE (22:41)
[2023-07-01] MEDS: NICOTINE 21MG/24HR PATCH TRANSDERM SCH (22:41)
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
[2023-07-02] MEDS ORDERED: NIFEdipine XL 90 MG TAB.ER.24 PO SCH (09:00)
[2023-07-02] MEDS: NON FORMULARY DRUG (Buprenorphine/Naloxone 8mg/2mg 1 EACH Film) SUBLINGUAL SCH (09:33)
[2023-07-02] MEDS: LORATADINE 10 MG TAB PO SCH (09:33)
[2023-07-02 10:49] LABS: ALT 22 U/L (4-34); AST 22 U/L (14-36); Albumin 3.8 g/dL (3.5-5.0); Alkaline Phosphatase 77 U/L (38-126); Bilirubin, Delta 0.2 mg/dL (0.0-0.2); Bilirubin,Unconjugated 0.1 mg/dL (0.0-1.1); Total Bilirubin 0.3 mg/dL (0.2-1.3); Total Protein 6.6 g/dL (6.3-8.2)
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
[2023-07-02] MEDS: LORazepam 1 MG TAB PO PRN (15:13)
[2023-07-02] MEDS: INFLUENZA VACC (6 MOS-64 YRS) 60 MCG/0.5 ML SYRINGE IM ONE (18:40)
[2023-07-02] MEDS: PNEUMOCOCCAL VACC-PREVNAR-20 0.5 ML SYR IM ONE (18:42)
[2023-07-02] MEDS: EMTRICITABINE/TENOFOVIR (TDF) 1 EACH, DOLUTEGRAVIR SODIUM 50 MG PO SCH (18:50)
[2023-07-02] MEDS: cefTRIAXone 1,000 MG VIAL (IM USE) IM STA (18:51)
[2023-07-02] MEDS: DOXYCYCLINE 100 MG CAP PO SCH (20:52)
[2023-07-02] MEDS: SERTRALINE 50 MG TAB PO SCH (21:35)
[2023-07-02] MEDS: PALIPERIDONE 3 MG TAB.ER.24 PO SCH (21:35)
[2023-07-02 22:37] LABS: Chol/HDL Ratio 3.07 Ratio; LDL Cholesterol,Calculated 90.2 mg/dL (0.0-131.0); VLDL Calculation 12.88 mg/dL (5.00-40.00)
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
[2023-07-04 11:31] LABS: African American GFR (CKD) 37 (>60 ml/min/1.73 sqM); Anion Gap 6 mmol/L; Blood Urea Nitrogen 28 mg/dL (7-17); Carbon Dioxide 25 mmol/L (22-30); Chloride 107 mmol/L (98-107); Glucose 100 mg/dL (74-99); Magnesium 1.9 mg/dL (1.6-2.3); Non-African American GFR(CKD) 32 (>60 ml/min/1.73 sqM); Potassium 3.9 mmol/L (3.5-5.1); Sodium 138 mmol/L (137-145)
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
[2023-07-04 21:57] VITALS: RESP 16
[2023-07-05] MEDS: BUPRENORPHINE-NALOX 8-2 MG TAB 1 EACH TAB.SUBL SL SCH (09:06)
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
[2023-07-05] MEDS: ACETAMINOPHEN TAB 325 MG TAB PO PRN (13:00)
[2023-07-06 07:22] VITALS: TEMP 97.9
[2023-07-06 08:45] VITALS: BP 152/83; PULSE 84
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
== END 2023-07-06 14:00 | disposition home or self-care (01) | DRG 751 ==
LOC: EC 02:41 → 3MHU 15:17
PROVIDERS: ADMIT Psychiatry & Neurology Psychiatry; ATTEND Psychiatry & Neurology Psychiatry
PROC: 3E0234Z Introduction of Serum, Toxoid and Vaccine into Muscle, Percutaneous Approach (ICD-10-PCS; principal; 2023-07-02)
PROC: 3E02340 Introduction of Influenza Vaccine into Muscle, Percutaneous Approach (ICD-10-PCS; principal; 2023-07-02)
DX: F32.3 Major depressive disorder, single episode, severe with psychotic features (principal); F41.9 Anxiety disorder, unspecified; F11.11 Opioid abuse, in remission; F15.20 Other stimulant dependence, uncomplicated; F17.210 Nicotine dependence, cigarettes, uncomplicated; F43.10 Post-traumatic stress disorder, unspecified; I12.9 Hypertensive chronic kidney disease with stage 1 through stage 4 chronic kidney disease, or unspecified chronic kidney disease; N18.9 Chronic kidney disease, unspecified; Z79.899 Other long term (current) drug therapy; Z71.51 Drug abuse counseling and surveillance of drug abuser; Z11.52 Encounter for screening for COVID-19; Z28.310 Unvaccinated for COVID-19; Z23 Encounter for immunization
CPT/HCPCS: 36415; 72170; 80048; 80053; 80061; 80076; 80143; 80179; 80306; 80320; 81001; 81025; 82075; 83036; 83735; 84443; 85025; 86706; 87635; 90677; 90686; 96374; 99285